=== PATIENT | female | born 2000 | race African-American/Black ===

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

== ENCOUNTER 2021-05-19 06:51 | Emergency (ER) | payer OTHER ==
[2021-05-19 07:28] VITALS: BP 120/82; PULSE 85; TEMP 98.2; BMI 22.4
== END 2021-05-19 08:07 | disposition home or self-care (01) ==
LOC: JERFT 06:51
DX: K64.4 Residual hemorrhoidal skin tags (principal)
CPT/HCPCS: 99283-25

== ENCOUNTER 2022-04-27 03:56 | Day surgery (SDC) | payer OTHER ==
[2022-04-26 09:24] VITALS: BMI 21.9
[~2022-04-27 03:56] MED LIST: ceFAZolin SODIUM 1 GM VIAL IVPB ONE
[2022-04-27] MEDS ORDERED: ONDANSETRON 4 MG/2 ML VIAL ONE ×2 (10:12→10:48)
[2022-04-27] MEDS ORDERED: KETOROLAC TROMETHAMINE 30 MG/1 ML VIAL ONE (10:12)
[2022-04-27] MEDS ORDERED: FENTANYL CITRATE/PF 50 MCG/ML VIAL ONE ×4 (10:12→12:04)
[2022-04-27] MEDS ORDERED: DEXAMETHASONE SOD PHOSPHATE 4 MG/1 ML VIAL ONE ×2 (10:12→10:48)
[2022-04-27] MEDS ORDERED: SUCCINYLCHOLINE CHLORIDE 200 MG/10 ML SYRINGE ONE (10:12)
[2022-04-27] MEDS ORDERED: PROPOFOL 20 ML ONE ×2 (10:12→10:27)
[2022-04-27] MEDS ORDERED: MIDAZOLAM HCL 2 MG/2 ML SINGLE DOSE VIAL ONE (10:12)
[2022-04-27 12:52] VITALS: RESP 18
[2022-04-27] MEDS ORDERED: ONDANSETRON 4 MG/2 ML VIAL IVPUSH PRN (13:11)
[2022-04-27] MEDS ORDERED: oxyCODONE HCL 5 MG TABLET PO PRN ×2 (13:11)
[2022-04-27] MEDS ORDERED: LACTATED RINGERS SOLUTION 1,000 ML IV SCH (13:15)
[2022-04-27 13:40] VITALS: BP 133/83; PULSE 72; TEMP 97.6
== END 2022-04-27 13:30 | disposition home or self-care (01) ==
LOC: JASU-SURG 03:56
PROVIDERS: ATTEND Obstetrics & Gynecology
PROC: 0UDB7ZX Extraction of Endometrium, Via Natural or Artificial Opening, Diagnostic (ICD-10-PCS; principal; 2022-04-27 09:30)
PROC: 0UJD8ZZ Inspection of Uterus and Cervix, Via Natural or Artificial Opening Endoscopic (ICD-10-PCS; 2022-04-27 09:30)
DX: N94.6 Dysmenorrhea, unspecified (principal); N84.0 Polyp of corpus uteri
CPT/HCPCS: 81025; 88305-TC; 94760